=== PATIENT | male | born 1965 | race Caucasian/White ===

== ENCOUNTER 2016-06-25 09:32 | Emergency (ER) | payer MEDICAID ==
[~2016-06-25] VITALS: Ht 175.3 cm; Wt 68.0 kg
[~2016-06-25 09:32] MED LIST: INSULIN
[2016-06-25 09:40] VITALS: BP 129/87
[2016-06-25 10:42] LABS: HEMOGLOBIN. 14.2 g/dL (14.0-18.0); MEAN CORPUSCULAR HGB CONC 34.6 g/dL (31.0-37.0); MEAN CORPUSCULAR VOLUME 89.6 fL (80.0-94.0); MEAN PLATELET VOLUME 7.2 fl (7.4-10.4); RED BLOOD CELL COUNT 4.58 mill/uL (4.7-6.1); RED CELL DISTRIBUTION WIDTH 15.5 % (11.6-14.6); WHITE BLOOD COUNT 2.9 x1000/uL (4.5-11.0)
[2016-06-25 10:45] LABS: DIFFERENTIAL COMMENT 1
[2016-06-25 10:54] LABS: ALANINE AMINOTRANSFERASE 57 IU/L (13-61); ALBUMIN 2.6 g/dL (3.4-5.0); ANION GAP 12; CALCIUM 8.6 mg/dL (8.5-10.1); CARBON DIOXIDE 27 mEq/L (21-32); CHLORIDE 102 mEq/L (98-107); INDEX HEMOLYSI 1 (1-3); INDEX ICTERIC 2 (1-4); INDEX LIPEMIC 1 (1-3); UREA NITROGEN BLOOD 12 mg/dL (7-21); eGFR > 60 mL/min (>60)
[2016-06-25 10:57] LABS: INR 1.4; PROTHROMBIN TIME 14.5 sec
[2016-06-25 11:00] LABS: ANISOCYTOSIS 1+; PLATELET ESTIMATE MARKEDLY DECREASED
[2016-06-25 11:02] LABS: PLATELET 44 x1000/uL (130-400)
[2016-06-25] MEDS ORDERED: SODIUM CHLORIDE 0.9% 1,000 ML IV ONE (11:30)
== END 2016-06-25 12:03 | disposition home or self-care (01) ==
LOC: ER 09:56
DX: R79.89 Other specified abnormal findings of blood chemistry (principal); K74.60 Unspecified cirrhosis of liver; Z88.6 Allergy status to analgesic agent; Z79.4 Long term (current) use of insulin; I10 Essential (primary) hypertension; F12.10 Cannabis abuse, uncomplicated; E11.65 Type 2 diabetes mellitus with hyperglycemia
CPT/HCPCS: 36415; 80053; 82962; 85025; 85610; 99284; J7030; Z7610